=== PATIENT | female | born 1975 | race Caucasian/White ===

== ENCOUNTER 2017-06-12 18:36 | Emergency (ER) | payer MEDICAID ==
[~2017-06-12] VITALS: Ht 170.2 cm; Wt 56.0 kg
[~2017-06-12 18:36] MED LIST: CYCL-1 PO
[2017-06-12 20:09] LABS: BASOPHILS % (AUTO) 0.1 % (0-1); EOSINOPHILS # (AUTO) 0.2 X10'3 (0-0.9); EOSINOPHILS % (AUTO) 1.7 % (0-6); HEMATOCRIT 35.8 % (35.0-45.0); LYMPHOCYTES % (AUTO) 8.4 % (21-51); MEAN CORPUSCULAR HEMOGLOBIN 29.3 PG (27.0-31.0); MEAN CORPUSCULAR HGB CONC 33.5 % (33.0-36.5); MEAN CORPUSCULAR VOLUME 87.7 FL (78-98); MEAN PLATELET VOLUME 6.4 FL (7.4-10.4); MONOCYTES # (AUTO) 0.6 X10'3 (0-0.9); MONOCYTES % (AUTO) 5.6 % (2-12); NEUTROPHILS # (AUTO) 9.5 X10'3 (1.8-7.7); NEUTROPHILS % (AUTO) 84.2 % (42-75); PLATELET COUNT 302 X10'3 (140-440); RED BLOOD COUNT 4.09 X10'6 (4.20-5.60); RED CELL DISTRIBUTION WIDTH 14.1 % (11.5-14.5); WHITE BLOOD COUNT 11.3 X10'3 (4.5-11.0)
[2017-06-12 20:23] LABS: ALANINE AMINOTRANSFERASE 47 U/L (12-78); ALBUMIN 3.2 G/DL (3.4-5.0); ALBUMIN/GLOBULIN RATIO 0.8 (1.1-1.5); ALKALINE PHOSPHATASE 91 IU/L (46-116); ANION GAP 10 (8-16); ASPARTATE AMINO TRANSFERASE 31 U/L (10-37); BILIRUBIN,TOTAL 0.5 MG/DL (0.1-1.0); BLOOD UREA NITROGEN 9 MG/DL (7-18); BUN/CREATININE RATIO 10.3 (6.6-38.0); CALCIUM 8.7 MG/DL (8.5-10.1); CHLORIDE 99 MMOL/L (99-107); CREATININE 0.87 MG/DL (0.40-0.90); GLUCOSE 147 MG/DL (70-104); POTASSIUM 3.6 MMOL/L (3.5-5.1); SODIUM 137 MMOL/L (135-145); TOTAL CARBON DIOXIDE 27.8 MMOL/L (24-32); TOTAL PROTEIN 7.2 G/DL (6.4-8.2); eGFR 72 ML/MIN
[2017-06-12 20:28] LABS: ETHANOL < 0.010 GM/DL (0.0-0.010)
[2017-06-12 20:48] LABS: TOTAL CELLS COUNTED 100
[2017-06-12 20:49] LABS: PLATELET ESTIMATE NORMAL
[2017-06-12] MEDS ORDERED: clindamycin 150mg capsule PO ONE (22:10)
[2017-06-12] MEDS ORDERED: DOXY100T2 PO (22:17)
[2017-06-12 22:39] VITALS: BP 149/93
== END 2017-06-12 22:41 | disposition home or self-care (01) ==
LOC: ER 18:36
DX: L03.011 Cellulitis of right finger (principal); Z56.0 Unemployment, unspecified
CPT/HCPCS: 36415; 73130; 80053; 80320; 85025; 85651; 93005; 99285

== ENCOUNTER 2017-09-11 04:41 | Emergency (ER) | payer MEDICAID ==
[~2017-09-11] VITALS: Ht 170.2 cm; Wt 52.0 kg
[~2017-09-11 04:41] MED LIST changes: +DOXY100T2 PO
[2017-09-11 04:43] VITALS: BP 111/67
[2017-09-11] MEDS ORDERED: PENI500T2 PO (05:43)
[2017-09-11] MEDS ORDERED: penicillin V potassium 500mg tablet PO ONE (05:45)
== END 2017-09-11 05:53 | disposition home or self-care (01) ==
LOC: ER 04:41
DX: J02.0 Streptococcal pharyngitis (principal); F17.200 Nicotine dependence, unspecified, uncomplicated; F15.90 Other stimulant use, unspecified, uncomplicated; Z56.0 Unemployment, unspecified; Z79.899 Other long term (current) drug therapy
CPT/HCPCS: 87880; 99283

== ENCOUNTER 2018-02-19 23:30 | Emergency (ER) | payer MEDICAID | END 2018-02-19 23:44 | disposition left against medical advice (07) | LOC: ER 23:31 | DX: L02.91 Cutaneous abscess, unspecified (principal); Z53.21 Procedure and treatment not carried out due to patient leaving prior to being seen by health care provider ==

== ENCOUNTER 2018-02-21 10:19 | Emergency (ER) | payer MEDICAID ==
[~2018-02-21] VITALS: Ht 170.2 cm; Wt 60.8 kg
[2018-02-21 10:40] VITALS: BP 111/67
== END 2018-02-21 11:25 | disposition left against medical advice (07) ==
LOC: ER 10:19
DX: L98.8 Other specified disorders of the skin and subcutaneous tissue (principal); Z53.21 Procedure and treatment not carried out due to patient leaving prior to being seen by health care provider

== ENCOUNTER 2018-03-07 22:59 | Emergency (ER) | payer MEDICAID ==
[~2018-03-07] VITALS: Ht 170.2 cm; Wt 60.2 kg
[2018-03-07 23:06] VITALS: BP 99/60
[2018-03-07] MEDS ORDERED: IBUP-1984 PO (23:37)
[2018-03-07] MEDS ORDERED: CLIN300C85 PO (23:37)
== END 2018-03-07 23:55 | disposition home or self-care (01) ==
LOC: ER 23:00
DX: L02.413 Cutaneous abscess of right upper limb (principal); F15.90 Other stimulant use, unspecified, uncomplicated; F19.90 Other psychoactive substance use, unspecified, uncomplicated; Z56.0 Unemployment, unspecified
CPT/HCPCS: 99283

== ENCOUNTER 2018-05-21 00:01 | Emergency (ER) | payer MEDICAID ==
[~2018-05-21] VITALS: Ht 170.2 cm; Wt 57.3 kg
[~2018-05-21 00:01] MED LIST changes: +CLIN300C85 PO; -CYCL-1 PO; -DOXY100T2 PO
[2018-05-21 01:39] LABS: BASOPHILS # (AUTO) 0.1 X10'3 (0-0.2); BASOPHILS % (AUTO) 0.9 % (0-1); EOSINOPHILS # (AUTO) 0.2 X10'3 (0-0.9); EOSINOPHILS % (AUTO) 2.6 % (0-6); HEMATOCRIT 37.9 % (35.0-45.0); HEMOGLOBIN 12.1 g/dl (12.0-16.0); LYMPHOCYTES # (AUTO) 1.9 X10'3 (1.1-4.8); LYMPHOCYTES % (AUTO) 32.2 % (21-51); MEAN CORPUSCULAR HEMOGLOBIN 27.8 PG (27.0-31.0); MEAN CORPUSCULAR HGB CONC 31.9 g/dL (33.0-36.5); MEAN PLATELET VOLUME 7.1 FL (7.4-10.4); MONOCYTES # (AUTO) 0.4 X10'3 (0-0.9); MONOCYTES % (AUTO) 6.2 % (2-12); NEUTROPHILS # (AUTO) 3.3 X10'3 (1.8-7.7); NEUTROPHILS % (AUTO) 58.1 % (42-75); PLATELET COUNT 338 X10'3 (140-440); RED BLOOD COUNT 4.35 X10'6 (4.20-5.60); WHITE BLOOD COUNT 5.9 X10'3 (4.5-11.0)
[2018-05-21 01:51] LABS: ALANINE AMINOTRANSFERASE 24 U/L (12-78); ALBUMIN 3.5 G/DL (3.4-5.0); ALBUMIN/GLOBULIN RATIO 0.9 (1.1-1.5); ALKALINE PHOSPHATASE 87 IU/L (46-116); ANION GAP 9 (8-16); ASPARTATE AMINO TRANSFERASE 22 U/L (10-37); BILIRUBIN,TOTAL 0.2 MG/DL (0.1-1.0); BLOOD UREA NITROGEN 13 MG/DL (7-18); BUN/CREATININE RATIO 14.4 (6.6-38.0); CALCIUM 8.8 MG/DL (8.5-10.1); CHLORIDE 102 MMOL/L (99-107); GLUCOSE 96 MG/DL (70-104); POTASSIUM 3.5 MMOL/L (3.5-5.1); SODIUM 139 MMOL/L (135-145); TOTAL CARBON DIOXIDE 27.7 MMOL/L (24-32); TOTAL PROTEIN 7.6 G/DL (6.4-8.2); eGFR 69 ML/MIN
[2018-05-21] MEDS ORDERED: SULF1TAB49 PO (03:39)
[2018-05-21] MEDS ORDERED: LIDOcaine Viscous 15ml cup PO ONE (03:40)
[2018-05-21] MEDS ORDERED: mag hydrox/Alum hydrox/simeth 30ml oral suspension PO ONE (03:40)
[2018-05-21 04:07] VITALS: BP 133/74
[2018-05-21 06:39] LABS: HIV ANTIBODY 1&2 RAPID NON-REACTIVE (Neg)
== END 2018-05-21 04:10 | disposition home or self-care (01) ==
LOC: ER 00:02
DX: J02.9 Acute pharyngitis, unspecified (principal); L03.114 Cellulitis of left upper limb; L03.113 Cellulitis of right upper limb; L02.414 Cutaneous abscess of left upper limb; F15.10 Other stimulant abuse, uncomplicated; J35.1 Hypertrophy of tonsils; M54.2 Cervicalgia; R59.0 Localized enlarged lymph nodes; Z56.0 Unemployment, unspecified; Z86.14 Personal history of Methicillin resistant Staphylococcus aureus infection
CPT/HCPCS: 36415; 80053; 83605; 85025; 86703; 87040; 87081; 87880; 99283

== ENCOUNTER 2019-08-11 20:19 | Emergency (ER) | payer MEDICAID ==
[~2019-08-11] VITALS: Ht 170.2 cm; Wt 54.5 kg
[~2019-08-11 20:19] MED LIST changes: +CLIN-97 PO; -CLIN300C85 PO; +DICY10CA88 PO
[2019-08-11 20:30] VITALS: BP 142/96
--- NOTE | 2019-08-11 20:45 | NUR ---
pt has been evaluated by provider
[2019-08-11] MEDS ORDERED: SULF1TAB49 PO (20:57)
== END 2019-08-11 21:11 | disposition home or self-care (01) ==
LOC: ER 20:20
DX: L98.8 Other specified disorders of the skin and subcutaneous tissue (principal); F19.10 Other psychoactive substance abuse, uncomplicated; F15.90 Other stimulant use, unspecified, uncomplicated; F11.90 Opioid use, unspecified, uncomplicated; Z86.14 Personal history of Methicillin resistant Staphylococcus aureus infection; Z60.2 Problems related to living alone; Z56.0 Unemployment, unspecified; Z59.0 Homelessness; Z79.2 Long term (current) use of antibiotics; Z79.899 Other long term (current) drug therapy
CPT/HCPCS: 99283

== ENCOUNTER 2019-11-23 01:06 | Emergency (ER) | payer MEDICAID ==
[~2019-11-23] VITALS: Ht 160 cm; Wt 53.9 kg
[2019-11-23] MEDS ORDERED: metroNIDAZOLE 500mg tablet PO ONE (01:45)
[2019-11-23] MEDS ORDERED: azithromycin 250mg tablet PO ONE (01:45)
[2019-11-23] MEDS ORDERED: CefTRIAXone 250MG IM Kit w/LIDOcaine IM ONE (01:45)
--- NOTE | 2019-11-23 02:11 | NUR ---
officer Daisy ibrahim with [employer], officer made aware that pt was to intocixated to have sart exam done. Pt wasnt able to sign conscent and will be staying in a hotel provided by [facility] and will return for exam once she maria eugenia up.
[2019-11-23 03:14] VITALS: BP 126/77
== END 2019-11-23 03:36 | disposition home or self-care (01) ==
LOC: EEVIPCON 01:06 → ER 01:06
DX: F15.10 Other stimulant abuse, uncomplicated (principal); F19.10 Other psychoactive substance abuse, uncomplicated; F17.210 Nicotine dependence, cigarettes, uncomplicated; F11.90 Opioid use, unspecified, uncomplicated; Z86.14 Personal history of Methicillin resistant Staphylococcus aureus infection; Z60.2 Problems related to living alone; Z56.0 Unemployment, unspecified; Z59.0 Homelessness; Z79.2 Long term (current) use of antibiotics; Y09 Assault by unspecified means
CPT/HCPCS: 99283

== ENCOUNTER 2019-11-24 13:22 | Emergency (ER) | payer MEDICAID ==
[~2019-11-24] VITALS: Ht 167.6 cm; Wt 59.1 kg
[2019-11-24 13:59] VITALS: BP 107/65
== END 2019-11-24 14:25 | disposition left against medical advice (07) ==
LOC: ER 13:22
DX: T74.21XA Adult sexual abuse, confirmed, initial encounter (principal); F12.90 Cannabis use, unspecified, uncomplicated; F15.90 Other stimulant use, unspecified, uncomplicated; F17.200 Nicotine dependence, unspecified, uncomplicated; Z86.14 Personal history of Methicillin resistant Staphylococcus aureus infection; Z60.2 Problems related to living alone; Z59.0 Homelessness; Z56.0 Unemployment, unspecified; Z79.2 Long term (current) use of antibiotics; Z79.899 Other long term (current) drug therapy; X58.XXXA Exposure to other specified factors, initial encounter; Y93.89 Activity, other specified; Y92.89 Other specified places as the place of occurrence of the external cause; Y99.8 Other external cause status
CPT/HCPCS: 99281

== ENCOUNTER 2019-12-11 23:37 | Emergency (ER) | payer MEDICAID ==
[~2019-12-11] VITALS: Ht 167.6 cm; Wt 54.5 kg
[2019-12-11] MEDS ORDERED: clindamycin 150mg capsule PO ONE (23:55)
[2019-12-11] MEDS ORDERED: ondansetron 4mg rapidly disintigrating tab PO ONE (23:55)
[2019-12-12] MEDS ORDERED: CLIN150C8 PO (00:42)
[2019-12-12 01:07] VITALS: BP 120/72
== END 2019-12-12 01:07 | disposition home or self-care (01) ==
LOC: ER 23:37
DX: L02.413 Cutaneous abscess of right upper limb (principal); L03.113 Cellulitis of right upper limb; M79.631 Pain in right forearm; M79.89 Other specified soft tissue disorders; R50.9 Fever, unspecified; F12.90 Cannabis use, unspecified, uncomplicated; F15.90 Other stimulant use, unspecified, uncomplicated; F11.90 Opioid use, unspecified, uncomplicated; F19.90 Other psychoactive substance use, unspecified, uncomplicated; Z86.14 Personal history of Methicillin resistant Staphylococcus aureus infection; Z60.2 Problems related to living alone; Z56.0 Unemployment, unspecified; Z59.0 Homelessness; Z79.2 Long term (current) use of antibiotics; Z79.899 Other long term (current) drug therapy
CPT/HCPCS: 10060; 99283

== ENCOUNTER 2020-01-26 21:59 | Emergency (ER) | payer MEDICAID ==
[~2020-01-26] VITALS: Ht 167.6 cm; Wt 58.1 kg
[~2020-01-26 21:59] MED LIST changes: +CLIN150C8 PO
[2020-01-26] MEDS ORDERED: LIDOcaine 1% W/epiNEPHrine 1:200,000 10ml vial IJ ONE (23:35)
[2020-01-26] MEDS ORDERED: LIDOcaine 1% W/epiNEPHrine 1:100,000 20ml vial IJ ONE (23:50)
[2020-01-27] MEDS ORDERED: acetaminophen 325mg tablet PO ONE (01:05)
[2020-01-27] MEDS ORDERED: sulfamethoxazole/trimethoprim DS (800/160mg) tablet PO ONE (01:05)
[2020-01-27] MEDS ORDERED: cephalexin 500mg capsule PO ONE (01:05)
[2020-01-27] MEDS ORDERED: CEPH500C5 PO (01:15)
[2020-01-27] MEDS ORDERED: ketorolac tromethamine 15mg/ml inj. IM ONE (01:15)
[2020-01-27] MEDS ORDERED: SULF1TAB49 PO (01:15)
[2020-01-27 02:01] VITALS: BP 121/82
== END 2020-01-27 02:02 | disposition home or self-care (01) ==
LOC: ER 21:59
DX: L02.512 Cutaneous abscess of left hand (principal); F11.10 Opioid abuse, uncomplicated; F15.10 Other stimulant abuse, uncomplicated; F12.10 Cannabis abuse, uncomplicated; Z59.0 Homelessness; Z56.0 Unemployment, unspecified
CPT/HCPCS: 10061; 73030; 73090; 96372; 99284; J1885; 10060

== ENCOUNTER 2021-02-05 04:33 | Emergency (ER) | payer MEDICAID ==
[~2021-02-05] VITALS: Ht 170.2 cm; Wt 54.0 kg
[2021-02-05] MEDS ORDERED: ipratropium/albuterol 3ml nebule NEB STA (05:00)
[2021-02-05] MEDS ORDERED: LIDOcaine 1% W/epiNEPHrine 1:200,000 10ml vial IJ ONE (06:15)
[2021-02-05] MEDS ORDERED: LIDOcaine 1% W/epiNEPHrine 1:100,000 20ml vial IJ ONE (06:20)
[2021-02-05] MEDS ORDERED: LIDOcaine 1% 30ml preserv. free vial IJ ONE (06:25)
[2021-02-05] MEDS ORDERED: iohexol 300mg/ml 100ml inj. ONE (06:30)
[2021-02-05] MEDS ORDERED: VANCOMYCIN 1GM/200ML IVPB 200 ML IV ONE (06:50)
[2021-02-05] MEDS ORDERED: vancomycin/NS 1 GM ADD-VANTAGE 250 ML X 1 DOSE IV ONE (06:50)
[2021-02-05] MEDS ORDERED: cefepime 1GM/NS ADD-VANTAGE 100 ML IV ONE (06:50)
[2021-02-05 07:45] LABS: BASOPHILS % (AUTO) 0.5 % (0-1); EOSINOPHILS # (AUTO) 0.1 X10'3 (0-0.9); EOSINOPHILS % (AUTO) 0.7 % (0-6); HEMATOCRIT 25.8 % (35.0-45.0); HEMOGLOBIN 8.8 g/dl (12.0-16.0); LYMPHOCYTES # (AUTO) 1.9 X10'3 (1.1-4.8); LYMPHOCYTES % (AUTO) 22.5 % (21-51); MEAN CORPUSCULAR HEMOGLOBIN 29.2 PG (27.0-31.0); MEAN CORPUSCULAR HGB CONC 34.1 g/dL (33.0-36.5); MEAN CORPUSCULAR VOLUME 85.8 FL (78-98); MEAN PLATELET VOLUME 6.3 FL (7.4-10.4); MONOCYTES # (AUTO) 0.8 X10'3 (0-0.9); MONOCYTES % (AUTO) 9.5 % (2-12); NEUTROPHILS # (AUTO) 5.5 X10'3 (1.8-7.7); NEUTROPHILS % (AUTO) 66.8 % (42-75); PLATELET COUNT 288 X10'3 (140-440); RED BLOOD COUNT 3.01 X10'6 (4.20-5.60); RED CELL DISTRIBUTION WIDTH 13.7 % (11.5-14.5); WHITE BLOOD COUNT 8.2 X10'3 (4.5-11.0)
[2021-02-05 07:53] LABS: ALBUMIN 2.1 G/DL (3.4-5.0); ANION GAP 7 (8-16); BLOOD UREA NITROGEN 7 MG/DL (7-18); BUN/CREATININE RATIO 13.5 (6.6-38.0); CHLORIDE 109 MMOL/L (99-107); CREATININE 0.52 MG/DL (0.40-0.90); GLUCOSE 81 MG/DL (70-104); POTASSIUM 3.3 MMOL/L (3.5-5.1); SODIUM 142 MMOL/L (135-145); TOTAL CARBON DIOXIDE 25.8 MMOL/L (24-32); eGFR > 90 ML/MIN
[2021-02-05] MEDS ORDERED: CEFD300C3 PO (08:54)
[2021-02-05] MEDS ORDERED: SULF1TAB49 PO (08:54)
[2021-02-05 10:11] VITALS: BP 134/76
== END 2021-02-05 10:15 | disposition home or self-care (01) ==
LOC: ER 04:34
DX: L08.9 Local infection of the skin and subcutaneous tissue, unspecified (principal); R07.81 Pleurodynia; J18.9 Pneumonia, unspecified organism; F12.90 Cannabis use, unspecified, uncomplicated; F15.90 Other stimulant use, unspecified, uncomplicated; F11.90 Opioid use, unspecified, uncomplicated; F19.90 Other psychoactive substance use, unspecified, uncomplicated; Z60.2 Problems related to living alone; Z59.00 Homelessness unspecified; Z56.0 Unemployment, unspecified; Z79.2 Long term (current) use of antibiotics; Z79.899 Other long term (current) drug therapy
CPT/HCPCS: 36415; 71045; 71260; 80048; 83605; 85025; 93005; 96365; 96366; 96367; 99285; J0692; J3370; Q9967

== ENCOUNTER 2021-04-27 19:31 | Emergency (ER) | payer MEDICAID ==
[~2021-04-27] VITALS: Ht 170.2 cm; Wt 55.0 kg
[~2021-04-27 19:31] MED LIST changes: +CEFD300C3 PO
[2021-04-27 19:52] VITALS: BP 119/99
== END 2021-04-27 21:07 | disposition home or self-care (01) ==
LOC: ER 19:32
DX: M79.10 Myalgia, unspecified site (principal); R53.83 Other fatigue; F12.90 Cannabis use, unspecified, uncomplicated; F15.90 Other stimulant use, unspecified, uncomplicated; F11.90 Opioid use, unspecified, uncomplicated; Z20.822 Contact with and (suspected) exposure to COVID-19; Z59.00 Homelessness unspecified; Z56.0 Unemployment, unspecified
CPT/HCPCS: 36415; 99283; U0003; U0005

== ENCOUNTER 2022-04-18 15:48 | Emergency (ER) | payer MEDICAID ==
[~2022-04-18] VITALS: Ht 170.2 cm; Wt 54.5 kg
[2022-04-18] MEDS ORDERED: NALO4SPR BOTHNARES ×3 (17:36→18:48)
--- NOTE | 2022-04-18 17:38 | NUR ---
pt is ao4 denies pain sob or dizziness. pt is disheveled but calm and cooperative.
--- NOTE | 2022-04-18 18:20 | NUR ---
PT GIVEN FOOD TRAY. EATING IN COMFORT. AO4 RESP EVEN UNLABORED.
--- NOTE | 2022-04-18 18:35 | NUR ---
report to zuleika for continuation of care
[2022-04-18 18:49] VITALS: BP 146/92
== END 2022-04-18 18:51 | disposition home or self-care (01) ==
LOC: ER 15:48
DX: T65.891A Toxic effect of other specified substances, accidental (unintentional), initial encounter (principal); Y92.89 Other specified places as the place of occurrence of the external cause; F12.10 Cannabis abuse, uncomplicated; F15.10 Other stimulant abuse, uncomplicated; Z86.14 Personal history of Methicillin resistant Staphylococcus aureus infection; Z59.00 Homelessness unspecified; Z56.0 Unemployment, unspecified
CPT/HCPCS: 99283

== ENCOUNTER 2022-05-21 04:57 | Emergency (ER) | payer MEDICAID ==
[~2022-05-21] VITALS: Ht 170.2 cm; Wt 54.5 kg
[~2022-05-21 04:57] MED LIST changes: +NALO4SPR BOTHNARES
[2022-05-21 05:05] VITALS: BP 156/87
[2022-05-21] MEDS ORDERED: CEPH-585 PO (07:20)
[2022-05-21] MEDS ORDERED: SULF1TAB49 PO (07:20)
== END 2022-05-21 10:20 | disposition home or self-care (01) ==
LOC: ER 04:57
DX: L03.114 Cellulitis of left upper limb (principal); L03.113 Cellulitis of right upper limb; L02.512 Cutaneous abscess of left hand; M25.561 Pain in right knee
CPT/HCPCS: 73564; 99283

== ENCOUNTER 2023-02-11 11:53 | Emergency (ER) | payer MEDICAID ==
[~2023-02-11] VITALS: Ht 170.2 cm; Wt 59.4 kg
[~2023-02-11 11:53] MED LIST changes: +CLIN-214 PO; -CLIN150C8 PO
[2023-02-11] MEDS ORDERED: AMOX-580 PO (13:43)
[2023-02-11 14:17] VITALS: BP 125/83; PULSE 75; RESP 16; TEMP 97.8; O2SAT 100
== END 2023-02-11 14:23 | disposition home or self-care (01) ==
LOC: ER 11:54
DX: J20.9 Acute bronchitis, unspecified (principal); J01.00 Acute maxillary sinusitis, unspecified; F12.90 Cannabis use, unspecified, uncomplicated; F15.90 Other stimulant use, unspecified, uncomplicated; Z86.14 Personal history of Methicillin resistant Staphylococcus aureus infection; Z79.2 Long term (current) use of antibiotics; Z79.899 Other long term (current) drug therapy
CPT/HCPCS: 71045; 99283

== ENCOUNTER 2024-05-11 20:55 | Emergency (ER) | payer MEDICAID ==
[~2024-05-11] VITALS: Ht 170.2 cm; Wt 56.8 kg
[2024-05-11 20:59] VITALS: TEMP 98
[2024-05-11 21:48] LABS: BASOPHILS % (AUTO) 0.7 % (0-1); EOSINOPHILS # (AUTO) 0.1 X10'3 (0-0.9); EOSINOPHILS % (AUTO) 1.7 % (0-6); HEMATOCRIT 35.7 % (35.0-45.0); LYMPHOCYTES % (AUTO) 33.5 % (21-51); MEAN CORPUSCULAR HEMOGLOBIN 31.1 PG (27.0-31.0); MEAN CORPUSCULAR HGB CONC 33.7 g/dL (33.0-36.5); MEAN CORPUSCULAR VOLUME 92.4 FL (78-98); MEAN PLATELET VOLUME 7.1 FL (7.4-10.4); MONOCYTES # (AUTO) 0.5 X10'3 (0-0.9); MONOCYTES % (AUTO) 8.9 % (2-12); NEUTROPHILS # (AUTO) 3.3 X10'3 (1.8-7.7); NEUTROPHILS % (AUTO) 55.2 % (42-75); PLATELET COUNT 292 X10'3 (140-440); RED BLOOD COUNT 3.87 X10'6 (4.20-5.60); RED CELL DISTRIBUTION WIDTH 13.4 % (11.5-14.5); WHITE BLOOD COUNT 5.9 X10'3 (4.5-11.0)
[2024-05-11 22:02] LABS: ALANINE AMINOTRANSFERASE 181 U/L (12-78); ALBUMIN 3.6 G/DL (3.4-5.0); ALBUMIN/GLOBULIN RATIO 0.9 (1.1-1.5); ALKALINE PHOSPHATASE 85 IU/L (46-116); ANION GAP 6 (8-16); ASPARTATE AMINO TRANSFERASE 99 U/L (10-37); BILIRUBIN,TOTAL 0.4 MG/DL (0.1-1.0); BLOOD UREA NITROGEN 14 MG/DL (7-18); BUN/CREATININE RATIO 17.9 (10.0-20.0); CALCIUM 8.9 MG/DL (8.5-10.1); CHLORIDE 104 MMOL/L (99-107); CREATININE 0.78 MG/DL (0.40-0.90); GLUCOSE 161 MG/DL (70-104); LIPASE 48 U/L (16-77); POTASSIUM 3.7 MMOL/L (3.5-5.1); SODIUM 138 MMOL/L (135-145); TOTAL PROTEIN 7.7 G/DL (6.4-8.2); eCRCL 80 ML/MIN; eGFR 79 ML/MIN
[2024-05-11 22:18] VITALS: BP 139/77; PULSE 78; RESP 16; O2SAT 99
[2024-05-11 23:00] LABS: BILIRUBIN,URINE NEGATIVE (Neg); CLARITY,URINE CLEAR (Clear); COLOR,URINE YELLOW (Yellow); GLUCOSE, URINE NEGATIVE (Neg); KETONES,URINE NEGATIVE (Neg); LEUKOCYTE ESTERASE ,URINE NEGATIVE (Neg); NITRITES, URINE NEGATIVE (Neg); OCCULT BLOOD,URINE MODERATE (Neg); PROTEIN,URINE NEGATIVE (Neg); UROBILINOGEN,URINE 0.2 E.U/dL (0.2-1.0)
[2024-05-11 23:01] LABS: URINE HCG NEGATIVE (NEG)
[2024-05-11 23:06] LABS: UA COLLECTION TYPE CLN CATCH MIDSTREAM
[2024-05-11 23:08] LABS: BACTERIA,URINE NONE SEEN /HPF (Neg); SQUAMOUS EPITHELIAL CELL,UR NONE SEEN /LPF (FEW); WBC,URINE NONE SEEN /HPF (0-4)
== END 2024-05-11 22:45 | disposition home or self-care (01) ==
LOC: ER 20:56
DX: K29.00 Acute gastritis without bleeding (principal); F12.90 Cannabis use, unspecified, uncomplicated; F15.90 Other stimulant use, unspecified, uncomplicated; F11.90 Opioid use, unspecified, uncomplicated; F19.90 Other psychoactive substance use, unspecified, uncomplicated; Z60.2 Problems related to living alone; Z56.0 Unemployment, unspecified; Z59.00 Homelessness unspecified; Z79.899 Other long term (current) drug therapy
CPT/HCPCS: 36415; 80053; 81001; 81025; 83690; 85025; 99283

== ENCOUNTER 2025-03-22 06:50 | Emergency (ER) | payer MEDICAID ==
[~2025-03-22] VITALS: Ht 170.2 cm; Wt 56.8 kg
[~2025-03-22 06:50] MED LIST changes: +CLIN-224 PO; -CLIN-97 PO
[2025-03-22 06:51] VITALS: BP 129/77; PULSE 89; RESP 19; O2SAT 98
--- NOTE | 2025-03-22 07:11 | Physician Documentation ---
History of Present Illness General Chief Complaint: Itching Stated Complaint: ITCHY ALL OVER Time Seen by MD: 07:08 Primary Medical Doctor: Kevan History of Present Illness Initial Comments The patient is a 49-year-old female complains of itching all over body for last two weeks patient states that it started on her back and she has noticed stone on over extremities as well as her trunk. The patient states she does not know of any bugs she has not witnessed any. The patient denies any fevers or chills the patient states her symptoms are moderate and persist Medication Reconciliation Allergies: Coded Allergies: No Known Allergies (Unverified , 05/21/22) Scheduled Cefdinir (Cefdinir), 300 MG PO TID Clindamycin HCL* (Clindamycin HCL*), 1 CAP PO Q6H Clindamycin HCl (Clindamycin HCl CAPSULE), 1 CAP PO QID Dicyclomine Hcl* (Bentyl*), 1 CAP PO TID Permethrin (Permethrin), 1 APPLIC TOP ONCE Scheduled PRN Hydroxyzine Hcl* (Atarax*), 2 TAB PO Q8H PRN for ITCHING Naloxone HCl (Narcan), 1 SPRAYS BOTHNARES ONCE PRN for Per Protocol Past Medical History Past Medical History: No Pertinent History, MRSA Abscess Past Surgical History: noncontributory Smoking: Cigarettes Alcohol Use: None Drug Use: marijuana, methamphetamine, heroin, other Lives with: Alone Lives In: Homeless Occupation: unemployed Review of Systems All Other Systems at this time: Reviewed and Negative Physical Exam Physical Exam Vital Signs: Temperature: 97.6, Source: Oral, Heart Rate: 89, Respiratory Rate: 19, BP: 129/77, Pulse Oximetry: 98, Weight: 56.820 Oxygen Flow Rate: 0 Physical Exam VITALS: Reviewed and as above. GENERAL: Alert, no apparent distress. GI: Soft, non-tender, bowels sounds present, no rebound, guarding, or rigidity BACK: No CVA tenderness, or swelling MUSCULOSKELETAL: No deformities, no edema SKIN: Warm and dry, the patient has erythematous macules over the trunk back and upper extremities NEURO: Oriented x4, No motor or sensory deficit PSYCH: Normal mood and affect, no agitation Progress Results/Orders Results/Orders Vital Signs 03/22/25 03/22/25 06:51 07:17 Temp 97.6 97.6 Pulse 89 Resp 19 B/P (MAP) 129/77 Pulse Ox 98 O2 Flow Rate 0 Medical Decision Making Additional information obtaine: old records Findings Patient with a rash that may be scabies the patient has been itching for several weeks the patient will be given permethrin and hydroxyzine for the itching the patient will be discharged she is otherwise nontoxic there was no rash on the palms of her hands Differential Diagnosis Eczema, scabies, bug bites, Departure Disposition: HOME / SELF CARE / HOMELESS Impression: Primary Impression: Itching Additional Impression: Rash Discharge Instructions: Scabies, Adult Referrals: NO PRIMARY CARE PROVIDER (PCP) Prescriptions Hydroxyzine Hcl* (Atarax*) 25 Mg Tablet 2 TAB PO Q8H PRN for ITCHING, #30 TAB Prov: MIKAL OBREGON MD 03/22/25 Permethrin (Permethrin) 5 % Cream.gm. 1 APPLIC TOP ONCE for 1 Day, #60 GM apply head to toe at night wash off in the morning reapply one more time in a week Prov: MIKAL OBREGON MD 03/22/25 Signature Scribe Signature: No scribe Attestation: The note accurately reflects work and decisions made by me.Mikal Obregon MD 03/23/25 16:07 MIKAL OBREGON MD Mar 22, 2025 07:11
[2025-03-22] MEDS ORDERED: HYDR-3686 PO (07:13)
[2025-03-22] MEDS ORDERED: PERM60CR21 TOP (07:13)
[2025-03-22 07:17] VITALS: TEMP 97.6
== END 2025-03-22 07:19 | disposition home or self-care (01) ==
LOC: ER 06:51
DX: L29.9 Pruritus, unspecified (principal); R21 Rash and other nonspecific skin eruption; F12.90 Cannabis use, unspecified, uncomplicated; F17.210 Nicotine dependence, cigarettes, uncomplicated; Z59.00 Homelessness unspecified; Z79.899 Other long term (current) drug therapy; Z56.0 Unemployment, unspecified; Z60.2 Problems related to living alone
CPT/HCPCS: 99283